=== PATIENT | male | born 1980 | race Hispanic/Latino ===

== ENCOUNTER 2018-03-13 10:38 | Outpatient (CLI) | payer BC, OTHER ==
[2018-03-13] MEDS ORDERED: Lidocaine 1% PF 10 ML AMP ONE (10:50)
[2018-03-13] MEDS ORDERED: Iopamidol 300 61% 50 ML VIAL FS ONE (10:50)
[2018-03-13] MEDS ORDERED: Gadobenate Dimeglumine 529 MG/1 ML (20ML VIAL) ONE (10:50)
[2018-03-13] MEDS ORDERED: EPINEPHrine 1 MG/ML AMP ONE (10:50)
--- NOTE | 2018-03-13 13:03 | RAD ---
RIGHT SHOULDER ARTHROGRAM: HISTORY: Right shoulder pain. FINDINGS: After informed consent was obtained. After informed consent was obtained, the patient was prepped and draped in the normal sterile fashion . Local anesthesia was obtained with 1% Xylocaine. A 22-gauge needle was inserted into the anterior lower third of the joint space without difficulty and 12 cc of a mixture of dilute Gadolinium and no nionic contrast were injected. There is good opacification of the joint space. The patient tolerate d the procedure well with no immediate complications. IMPRESSION: Successful right shoulder arthrogram. Please see MRI report concerning findings. POS: [facility]
--- NOTE | 2018-03-13 13:30 | MRI ---
POST ARTHROGRAM MRI RIGHT SHOULDER PERFORMED WITH CONTRAST ENHANCEMENT: HISTORY: Chronic right shoulder pain. FINDINGS: There are some mild arthritic changes of the AC joint. There is some fluid within the subacromial, s ubdeltoid recess, but this does not appear to represent actual contrast. There is an interstitial te ar of the conjoined portion of the supraspinatus and infraspinatus tendon. This linear interstitial tear appears to extend through more than 50% of the thickness of the tendon in this region. In addition, there is a prominent SLAP type tear of the posterior-superior labrum. The tear begins a t the level of the biceps anchor and extends into the posterior-superior labrum, almost to the mid eq uator level. In addition, the anterior-superior labrum is deficient. This is probably developmental . The inferior glenohumeral ligament is intact. IMPRESSION: 1. Focal interstitial tear, which appears to have an undersurface component near the junction of sup raspinatus and infraspinatus tendons. This focal tear extends more than 50% to the substance of the tendon. There is no significant fibre retraction. 2. Fairly prominent superior labrum anterior and posterior type tear of the posterior-superior labru m. POS: [facility]
== END 2018-03-13 10:39 | disposition home or self-care (01) ==
LOC: RAD 10:38
PROVIDERS: ATTEND Orthopaedic Surgery
DX: M75.41 Impingement syndrome of right shoulder (principal); S43.401A Unspecified sprain of right shoulder joint, initial encounter
CPT/HCPCS: 23350; A9579; J0171; J7050

== ENCOUNTER 2024-04-06 22:38 | Inpatient (IN) | payer BC, OTHER ==
[2024-04-06 23:49] VITALS: BMI 36.6
[2024-04-07] MEDS ORDERED: Promethazine HCl 25 MG/ML VIAL IM PRN (00:28)
[2024-04-07] MEDS ORDERED: Acetaminophen 325 MG TAB PO PRN (00:28)
[2024-04-07] MEDS ORDERED: Piperacillin/Tazobactam 3.375 GM in Sodium Chloride 0.9% 100 ML IVPB SCH (00:45)
[2024-04-07] MEDS: traMADol HCl 50 MG TAB PO PRN (00:58)
[2024-04-07] MEDS: Sodium Chloride 0.9% 1,000 ML IV SCH (00:59)
[2024-04-07] MEDS: Insulin Lispro 100 UNIT/ML 10 ML VIAL SC PRN ×2 (01:17→05:58)
[2024-04-07] MEDS: Piperacillin/Tazobactam 3.375 GM in Sodium Chloride 0.9% 100 ML IVPB SCH (01:17)
[2024-04-07 01:19] LABS: Glucose POC Confirmation 463 mg/dL (80-115)
[2024-04-07] MEDS ORDERED: Glucagon 1 MG/ML KIT IM PRN ×2 (03:55→12:16)
[2024-04-07] MEDS ORDERED: Dextrose 5% in Water 1,000 ML IV PRN ×2 (03:55→12:16)
[2024-04-07] MEDS ORDERED: Dextrose 50% Abboject 50 ML SYRINGE SLOW IVP PRN ×2 (03:55→12:16)
[2024-04-07 04:30] LABS: #Basophils Less than 0.03 10x3/uL (0.0-0.2); %Basophils 0.4 % (0.0-1.0); %Eosinophils 3.4 % (0.0-10.0); %Lymphocytes 45.5 % (21.0-51.0); %Monocytes 7.2 % (0.0-10.0); %Neutrophils 43.3 % (42.0-75.0); Hematocrit 41.7 % (42.0-52.0); Hemoglobin 13.9 g/dL (14.0-18.0); Mean Corpuscular HGB CONC 33.3 g/dL (32.0-36.0); Mean Corpuscular Hemoglobin 28.1 pg (27.0-31.0); Mean Corpuscular Volume 84.2 fL (78.0-98.0); Mean Platelet Volume 11.3 fL (7.4-10.4); Platelet Count 224 10x3/uL (130-400); RBC Distribution Width 13.1 % (11.5-14.5); Red Blood Cell (RBC) Count 4.95 mill/uL (4.70-6.10)
[2024-04-07 04:32] LABS: #Basophils 0.03 10x3/uL (0.0-0.2); %Basophils 0.6 % (0.0-1.0); %Eosinophils 4.5 % (0.0-10.0); %Lymphocytes 43.8 % (21.0-51.0); %Monocytes 7.5 % (0.0-10.0); %Neutrophils 43.2 % (42.0-75.0); Hematocrit 41.7 % (42.0-52.0); Hemoglobin 13.8 g/dL (14.0-18.0); Mean Corpuscular HGB CONC 33.1 g/dL (32.0-36.0); Mean Corpuscular Hemoglobin 27.2 pg (27.0-31.0); Mean Corpuscular Volume 82.1 fL (78.0-98.0); Mean Platelet Volume 11.3 fL (7.4-10.4); Platelet Count 218 10x3/uL (130-400); Red Blood Cell (RBC) Count 5.08 mill/uL (4.70-6.10)
[2024-04-07 04:51] LABS: Anion Gap 14 mmol/L (10-20); BUN (Urea Nitrogen) 14 mg/dL (8.9-20.6); Calc. Creatinine Clearance 163 mL/min (70-130); Carbon Dioxide 20 mmol/L (22-29); Chloride 105 mmol/L (98-107); Estimated GFR 95; Glucose 394 mg/dL (70-105); Potassium 3.9 mmol/L (3.5-5.1); Sodium 135 mmol/L (136-145)
[2024-04-07 04:52] LABS: ALT (SGPT) 11 U/L (8-55); AST (SGOT) 10 U/L (5-34); Albumin 3.3 g/dL (3.5-5.0); Alkaline Phosphatase 60 U/L (40-110); Anion Gap 15 mmol/L (10-20); BUN (Urea Nitrogen) 15 mg/dL (8.9-20.6); Bilirubin, Total 0.3 mg/dL (0.2-1.2); Calc. Creatinine Clearance 160 mL/min (70-130); Calcium 8.9 mg/dL (7.8-10.44); Carbon Dioxide 20 mmol/L (22-29); Chloride 104 mmol/L (98-107); Estimated GFR 92; Globulin 3.2 g/dL (2.4-3.5); Glucose 395 mg/dL (70-105); Potassium 3.9 mmol/L (3.5-5.1); Protein, Total 6.5 g/dL (6.0-8.3); Sodium 135 mmol/L (136-145)
[2024-04-07] MEDS: Ketorolac Tromethamine 30 MG (1 mL) VIAL IVP SCH (05:59)
[2024-04-07] MEDS: Rosuvastatin 20 MG TAB PO SCH (08:06)
[2024-04-07] MEDS: Famotidine 20 MG TAB PO SCH (08:07)
[2024-04-07] MEDS: Fenofibrate Nanocrystallized 145 MG TAB PO SCH (08:07)
[2024-04-07] MEDS: Pantoprazole DR 40 MG TAB PO SCH (08:07)
[2024-04-07] MEDS: Lisinopril 20 MG TAB PO SCH (08:07)
[2024-04-07] MEDS: Gabapentin 300 MG CAP PO SCH (08:07)
[2024-04-07] MEDS ORDERED: Bupivacaine 0.25% HCL 30 ML VIAL ONE (08:50)
[2024-04-07] MEDS ORDERED: EPINEPHrine 1 MG/ML VIAL ONE (08:50)
[2024-04-07] MEDS: Empagliflozin 25 MG TAB PO SCH (09:50)
[2024-04-07] MEDS: Alogliptin 25 MG TAB PO SCH (09:50)
[2024-04-07] MEDS ORDERED: Rocuronium Bromide 10 MG/ML (10ML VIAL) ONE (10:52)
[2024-04-07] MEDS ORDERED: fentaNYL 50 mcg/mL 1 mL Vial ONE ×2 (10:52→12:34)
[2024-04-07] MEDS ORDERED: Midazolam HCl 2 mg/2 ml Vial ONE (10:52)
[2024-04-07] MEDS ORDERED: PROPOFOL 20 ML ONE (10:52)
[2024-04-07] MEDS ORDERED: Piperacillin/Tazobactam 3.375 GM VIAL ONE (10:57)
[2024-04-07] MEDS ORDERED: Sodium Chloride 0.9% 100 ML ONE (10:57)
[2024-04-07] MEDS ORDERED: Ondansetron PF 4 MG/2 ML Vial ONE (11:09)
[2024-04-07] MEDS ORDERED: Lidocaine 1% PF 5 ML VIAL ONE (11:09)
[2024-04-07] MEDS ORDERED: Ketamine In 0.9 % NaCl 50 MG/5 ML SYRINGE ONE (11:23)
[2024-04-07] MEDS ORDERED: SUGAMMADEX SODIUM 200 MG/2 ML VIAL ONE ×2 (11:37→11:45)
[2024-04-07] MEDS ORDERED: Ondansetron PF 4 MG/2 ML Vial IVP PRN (12:16)
[2024-04-07] MEDS ORDERED: Calcium Carbonate 500 MG ChewTAB PO PRN (12:16)
[2024-04-07] MEDS ORDERED: Ipratropium/Albuterol 3 ML NEB NEB PRN (12:16)
[2024-04-07] MEDS ORDERED: HYDROcodone/Acetaminophen 10/325 mg Tablet PO PRN (12:16)
[2024-04-07] MEDS: D5 1/2 NS w/20 mEq KCL 1,000 ML IV SCH (14:28)
[2024-04-07 21:02] VITALS: TEMP 98
[2024-04-07] MEDS: Enoxaparin 30 MG (0.3 mL) SYRINGE SC SCH (21:11)
[2024-04-07] MEDS: Escitalopram Oxalate 20 mg Tablet PO SCH (21:11)
[2024-04-07] MEDS: Docusate 100 MG CAP PO SCH (21:11)
[2024-04-07] MEDS: Insulin Glargine 30 UNITS/0.3 ML VIAL SC SCH (21:12)
[2024-04-07] MEDS: Ondansetron PF 4 MG/2 ML Vial IVP PRN (21:25)
[2024-04-08] MEDS: Insulin Lispro 100 UNIT/ML 10 ML VIAL SC PRN (00:38)
[2024-04-08] MEDS: glipiZIDE 10 MG TAB PO SCH (08:29)
[2024-04-08] MEDS: Pioglitazone HCl 15 MG TAB PO SCH (08:29)
[2024-04-08 10:51] LABS: #Basophils Less than 0.03 10x3/uL (0.0-0.2); %Basophils 0.4 % (0.0-1.0); %Eosinophils 4.2 % (0.0-10.0); %Lymphocytes 29.3 % (21.0-51.0); %Monocytes 6.6 % (0.0-10.0); %Neutrophils 59.1 % (42.0-75.0); Hematocrit 39.5 % (42.0-52.0); Mean Corpuscular HGB CONC 32.9 g/dL (32.0-36.0); Mean Corpuscular Hemoglobin 28.1 pg (27.0-31.0); Mean Corpuscular Volume 85.5 fL (78.0-98.0); Mean Platelet Volume 11.2 fL (7.4-10.4); Platelet Count 208 10x3/uL (130-400); RBC Distribution Width 13.1 % (11.5-14.5); Red Blood Cell (RBC) Count 4.62 mill/uL (4.70-6.10)
[2024-04-08 11:32] LABS: ALT (SGPT) 10 U/L (8-55); AST (SGOT) 11 U/L (5-34); Alkaline Phosphatase 47 U/L (40-110); Anion Gap 15 mmol/L (10-20); BUN (Urea Nitrogen) 15 mg/dL (8.9-20.6); Bilirubin, Total 0.3 mg/dL (0.2-1.2); Calc. Creatinine Clearance 162 mL/min (70-130); Calcium 8.5 mg/dL (7.8-10.44); Carbon Dioxide 24 mmol/L (22-29); Chloride 106 mmol/L (98-107); Estimated GFR 94; Glucose 248 mg/dL (70-105); Potassium 3.3 mmol/L (3.5-5.1); Sodium 142 mmol/L (136-145)
[2024-04-08 12:26] VITALS: BP 108/73
[2024-04-08] MEDS ORDERED: Enoxaparin 40 MG (0.4 mL) SYRINGE SC SCH (21:00)
== END 2024-04-08 14:14 | disposition home or self-care (01) | DRG 399 ==
LOC: SURG B 23:16
PROVIDERS: ADMIT Student in an Organized Health Care Education/Training Program; ATTEND Student in an Organized Health Care Education/Training Program
PROC: 0DTJ4ZZ Resection of Appendix, Percutaneous Endoscopic Approach (ICD-10-PCS; principal; 2024-04-06)
DX: K35.80 Unspecified acute appendicitis (principal); E11.65 Type 2 diabetes mellitus with hyperglycemia; I10 Essential (primary) hypertension; E78.5 Hyperlipidemia, unspecified; E11.42 Type 2 diabetes mellitus with diabetic polyneuropathy; F32.A Depression, unspecified; F17.210 Nicotine dependence, cigarettes, uncomplicated; E66.9 Obesity, unspecified; Z79.899 Other long term (current) drug therapy; Z79.4 Long term (current) use of insulin; Z88.8 Allergy status to other drugs, medicaments and biological substances; Z68.36 Body mass index [BMI] 36.0-36.9, adult
CPT/HCPCS: 36415; 36416; 80053; 83036; 85025; 86850; 86900; 86901; 88304; J0171; J0665; J1650; J1815; J1885; J2250; J2405; J2543; J2704; J3010; J3480; J3490; J7050